=== PATIENT | female | born 1980 | race Caucasian/White ===

== ENCOUNTER 2017-02-21 01:15 | Emergency (ER) | payer MEDICAID ==
[2012-11-25 06:37] VITALS: BMI 29.2
== END 2017-02-21 02:38 | disposition home or self-care (01) ==
LOC: D.ER 01:15
DX: M25.562 Pain in left knee (principal); F17.200 Nicotine dependence, unspecified, uncomplicated; F41.9 Anxiety disorder, unspecified; J45.909 Unspecified asthma, uncomplicated; F31.9 Bipolar disorder, unspecified; M79.7 Fibromyalgia; G25.81 Restless legs syndrome

== ENCOUNTER 2019-05-01 18:19 | Emergency (ER) | payer MEDICAID ==
[~2019-05-01] VITALS: Ht 162.6 cm; Wt 68.2 kg
[2019-05-01 18:53] VITALS: Ht 162.6 cm; Wt 68.2 kg
[2019-05-01] MEDS ORDERED: XOLAIR (18:55)
[2019-05-01] MEDS ORDERED: TRILEPTAL600 MG PO (18:55)
[2019-05-01 19:21] LABS: BASOPHILS 0.6 % (0-2); EOSINOPHILS 3.7 % (0-7); HEMATOCRIT 38.5 % (36.0-48.0); HEMOGLOBIN 13.4 g/dL (12-16); IMMATURE GRANULOCYTES 0.3 % (0-5); LYMPHOCYTES 20.9 % (15-50); MCH 31.6 pg (26.0-34.0); MCHC 34.8 g/dL (31.0-37.0); MCV 90.8 fL (80.0-100.0); MEAN PLATELET VOLUME 10.2 fL (7.4-10.4); MONOCYTES 5.7 % (2-11); NEUTROPHILS 68.8 % (40-80); PLATELET COUNT 354 10x3/uL (130-400); RBC 4.24 10x6/uL (4.00-5.40); RDW 13.3 % (11.5-14.5); WBC 11.4 10x3/uL (4.8-10.8)
[2019-05-01 19:36] LABS: ALBUMIN 3.8 g/dL (3.4-5.0); ALKALINE PHOSPHATASE 53 U/L (46-116); ALT (SGPT) 14 U/L (10-68); BILIRUBIN - TOTAL 0.13 mg/dL (0.2-1.3); CALC OSMOLALITY 275 mosm/kg (275-300); CALCIUM 8.5 mg/dL (8.5-10.1); CARBON DIOXIDE 27.6 mmol/L (21.0-32.0); CHLORIDE - SERUM 102 mmol/L (98-107); CREATININE - SERUM 0.9 mg/dL (0.6-1.3); GLUCOSE 94 mg/dL (74-106); PROTEIN - SERUM 7.1 g/dL (6.4-8.2); SODIUM 138 mmol/L (136-145); UREA NITROGEN 13 mg/dL (7-18); eGFR NON AFRICAN AMERICAN 75 mL/min (90-120)
[2019-05-01 19:39] LABS: AMYLASE - SERUM 63 U/L (25-115); LIPASE 128 U/L (73-393)
[2019-05-01 19:42] LABS: TROPONIN-I < 0.017 ng/mL (0.000-0.060)
[2019-05-01 20:16] LABS: APPEARANCE CLEAR (CLEAR); BILIRUBIN NEGATIVE (NEGATIVE); COLOR YELLOW (YELLOW); GLUCOSE NEGATIVE (NEGATIVE); KETONE NEGATIVE (NEGATIVE); NITRITE NEGATIVE (NEGATIVE); PROTEIN NEGATIVE (NEGATIVE); UROBILINOGEN NORMAL (NORMAL)
[2019-05-01 20:18] LABS: HCG URINE NEGATIVE (NEGATIVE)
[2019-05-01] MEDS ORDERED: TORADOL10 MG PO (22:40)
[2019-05-01 23:10] VITALS: BP 118/70
== END 2019-05-01 23:10 | disposition home or self-care (01) ==
LOC: D.ER 18:19
PROVIDERS: Family Medicine
DX: R10.2 Pelvic and perineal pain (principal)

== ENCOUNTER 2019-10-18 12:29 | Emergency (ER) | payer MEDICAID ==
[~2019-10-18] VITALS: Ht 162.6 cm; Wt 72.3 kg
[~2019-10-18 12:29] MED LIST: TORADOL10 MG PO; TRILEPTAL600 MG PO; XOLAIR
[2019-10-18 12:39] VITALS: Ht 162.6 cm; Wt 72.3 kg
[2019-10-18] MEDS ORDERED: TRAZODONE HCL150 MG PO (12:41)
[2019-10-18] MEDS ORDERED: BUSPIRONE HCL30 MG PO (12:41)
[2019-10-18] MEDS ORDERED: ALBUTEROL SULF8.5 GM INH (12:42)
[2019-10-18 13:03] LABS: BASOPHILS 0.4 % (0-2); EOSINOPHILS 4.4 % (0-7); HEMATOCRIT 39.7 % (36.0-48.0); HEMOGLOBIN 14.2 g/dL (12-16); IMMATURE GRANULOCYTES 0.1 % (0-5); LYMPHOCYTES 36.9 % (15-50); MCH 31.7 pg (26.0-34.0); MCHC 35.8 g/dL (31.0-37.0); MCV 88.6 fL (80.0-100.0); MEAN PLATELET VOLUME 9.2 fL (7.4-10.4); MONOCYTES 6.6 % (2-11); NEUTROPHILS 51.6 % (40-80); PLATELET COUNT 390 10x3/uL (130-400); RBC 4.48 10x6/uL (4.00-5.40); RDW 12.3 % (11.5-14.5); WBC 7.5 10x3/uL (4.8-10.8)
[2019-10-18 13:08] LABS: APPEARANCE CLOUDY (CLEAR); BILIRUBIN NEGATIVE (NEGATIVE); COLOR YELLOW (YELLOW); GLUCOSE NEGATIVE (NEGATIVE); HCG URINE NEGATIVE (NEGATIVE); KETONE NEGATIVE (NEGATIVE); NITRITE POSITIVE (NEGATIVE); PROTEIN NEGATIVE (NEGATIVE); UROBILINOGEN NORMAL (NORMAL)
[2019-10-18 13:14] LABS: BACTERIA MANY /hpf (NEGATIVE); EPITHELIAL CELLS 0-5 /hpf (0-5); MUCUS <1+ /lpf (NONE SEEN); RED CELLS - URINE RARE /hpf (0-5); WHITE CELLS - URINE 0-5 /hpf (NEGATIVE)
[2019-10-18 13:18] LABS: CALC OSMOLALITY 257 mosm/kg (275-300); CALCIUM 8.7 mg/dL (8.5-10.1); CARBON DIOXIDE 24.5 mmol/L (21.0-32.0); CHLORIDE - SERUM 94 mmol/L (98-107); CREATININE - SERUM 0.8 mg/dL (0.6-1.3); GLUCOSE 91 mg/dL (74-106); POTASSIUM - SERUM 4.2 mmol/L (3.5-5.1); SODIUM 130 mmol/L (136-145); UREA NITROGEN 5 mg/dL (7-18); eGFR NON AFRICAN AMERICAN 85 mL/min (90-120)
[2019-10-18 13:26] LABS: ALKALINE PHOSPHATASE 52 U/L (46-116); ALT (SGPT) 18 U/L (10-68); AMYLASE - SERUM 52 U/L (25-115); BILIRUBIN - TOTAL 0.23 mg/dL (0.2-1.3); LIPASE 77 U/L (73-393); PROTEIN - SERUM 7.6 g/dL (6.4-8.2); TROPONIN-I < 0.017 ng/mL (0.000-0.060)
[2019-10-18] MEDS ORDERED: ZOFRAN ODT4 MG/UDTAB PO (16:06)
[2019-10-18] MEDS ORDERED: CARAFATE1 G PO (16:06)
[2019-10-18] MEDS ORDERED: RANITIDINE HCL150 M1 PO (16:06)
[2019-10-18] MEDS ORDERED: ACETAMINOPHEN500 M1 PO (16:06)
[2019-10-18] MEDS ORDERED: CYCLOBENZAPRINE10 MG PO (16:06)
[2019-10-18 16:51] VITALS: BP 122/78
== END 2019-10-18 16:51 | disposition home or self-care (01) ==
LOC: D.ER 12:29
PROVIDERS: Family Medicine
DX: R10.13 Epigastric pain (principal); K21.9 Gastro-esophageal reflux disease without esophagitis; J45.909 Unspecified asthma, uncomplicated; A05.9 Bacterial foodborne intoxication, unspecified; N83.201 Unspecified ovarian cyst, right side; N39.0 Urinary tract infection, site not specified; Z72.0 Tobacco use

== ENCOUNTER 2020-06-11 05:53 | Day surgery (SDC) | payer MEDICAID ==
[~2020-06-11] VITALS: Ht 162.6 cm; Wt 67.7 kg
[~2020-06-11 05:53] MED LIST changes: +ACETAMINOPHEN500 M1 PO; +ALBUTEROL SULF8.5 GM INH; +BUSPIRONE HCL30 MG PO; +CARAFATE1 G PO; +CYCLOBENZAPRINE10 MG PO; +RANITIDINE HCL150 M1 PO; +TRAZODONE HCL150 MG PO; +ZOFRAN ODT4 MG/UDTAB PO
[2020-06-11] MEDS ORDERED: FLOVENT HFA 11012 GM INH (06:30)
[2020-06-11] MEDS ORDERED: ABILIFY2 MG PO (06:30)
[2020-06-11] MEDS ORDERED: GABAPENTIN300 MG PO (06:31)
[2020-06-11] MEDS ORDERED: PEPCID AC20 MG PO (06:31)
[2020-06-11 06:57] VITALS: Ht 162.6 cm; Wt 67.7 kg
[2020-06-11 07:00] LABS: HCG SERUM NEGATIVE (NEGATIVE)
[2020-06-11 07:31] LABS: HEMATOCRIT 38.8 % (36.0-48.0); HEMOGLOBIN 13.2 g/dL (12-16); MCH 31.6 pg (26.0-34.0); MCV 92.8 fL (80.0-100.0); MEAN PLATELET VOLUME 9.3 fL (7.4-10.4); RBC 4.18 10x6/uL (4.00-5.40); RDW 12.5 % (11.5-14.5); WBC 6.8 10x3/uL (4.8-10.8)
--- NOTE | 2020-06-11 13:03 | NUR ---
0955 DRESSED. AWAKE & ALERT. GIVEN DISCHARGE INFORMATION INCLUDING: MED REC, GERD DIET INFORMATION, SHEET LISTING NSAIDS TO AVOID, POST ENDOSCOPY D/C INSTRUCTIONS. PT VOICED UNDERSTANDING. TO PRIVATE CAR PER WHEELCHAIR BY THIS NURSE. HOME WITH MOTHER, JACK YEN. Edgar DAVID R.N.
--- NOTE | 2020-06-12 15:39 | OP ---
PATIENT NAME: WANDA YEN MEDICAL RECORD: [id number] :84 LOCATION:[facility] ADMISSION DATE: SURGEON: ALEKSANDRA RAMSEY DO DATE OF OPERATION: 06/11/2020 PROCEDURE: EGD with biopsies. INDICATIONS FOR PROCEDURE: Dysphagia, heartburn, nausea and vomiting, epigastric pain. SCOPE: Olympus video gastroscope. MEDICATIONS: Propofol 150 mg IV per anesthesia. ESTIMATED BLOOD LOSS: Minimal. COMPLICATIONS: None. FINDINGS: Informed consent was given. The patient was made comfortable with the above medication. After reaching an adequate level of sedation by slow IV push, the patient was placed on her left side. The endoscope was advanced under direct visualization through the mouth to the second portion of the duodenum. The esophagus appeared normal down to the GE junction. Cold forceps biopsies were taken from the midesophagus to rule out the presence of eosinophils. At the GE junction, there were minor changes consistent with LA class A reflux-induced esophagitis. The endoscope was advanced beyond the GE junction into the stomach and retroflexed to view the cardia and fundus, which appeared normal. Throughout the body of the stomach as well as the antrum and prepyloric regions, there was some mild erythema and granularity consistent with mild chronic gastritis. Cold forceps biopsies were taken from the antrum and incisura to submit for histopathology and to rule out the presence of H. pylori. In the stomach body, there were a few benign appearing fundic gland type gastric polyps. A single polyp was biopsied using cold forceps to submit for histopathology. The endoscope was advanced beyond the pylorus into the duodenum, which appeared normal to the second portion. Cold forceps biopsies were taken randomly to submit for histopathology. The endoscope was withdrawn from the patient. The patient tolerated the procedure well and there were no complications. IMPRESSION: 1. LA class A reflux-induced esophagitis. 2. Mild chronic gastritis changes. 3. Few benign-appearing gastric polyps, status post biopsy. PLAN AND RECOMMENDATIONS: 1. Discharge home when recovery parameters are met. 2. Follow up biopsy specimen results. 3. GERD diet and reflux precautions. 4. Hold omeprazole and try to obtain Dexilant 60 mg daily. 5. Okay to continue as needed Pepcid in the evening for breakthrough symptoms. 6. Right upper quadrant ultrasound regarding epigastric pain and nausea and vomiting. 7. Consider PIPIDA scan if ultrasound is normal. 8. Consider gastric emptying scan if all above is normal and the patient continues to experience symptoms. OPERATIVE REPORT [id number] WANDA YEN 9. Follow up in GI clinic in 4-6 weeks. TRANSINT:[id number] Voice Confirmation ID: [id number] DOCUMENT ID: [id number] ALEKSANDRA RAMSEY DO at 1539 CC: [id number] DICTATION DATE: 06/11/20831 FAMILY CONSUMER SCIENCE FCS TEACHER: 06/11/20 1513 [facility] 06/11/20 [facility] [address] [place] [address]
== END 2020-06-11 09:23 | disposition home or self-care (01) ==
LOC: D.OPS 05:53
PROVIDERS: Anesthesiology; ATTEND Internal Medicine Gastroenterology
DX: R13.10 Dysphagia, unspecified (principal); R12 Heartburn; R11.2 Nausea with vomiting, unspecified; J45.909 Unspecified asthma, uncomplicated; Z72.0 Tobacco use; R19.7 Diarrhea, unspecified; R19.4 Change in bowel habit

== ENCOUNTER → 2020-06-25 09:21 | Outpatient (CLI) | payer MEDICAID ==
[2020-06-11 06:57] VITALS: BMI 25.6
[~2020-06-25 09:21] MED LIST changes: +ABILIFY2 MG PO; +FLOVENT HFA 11012 GM INH; +GABAPENTIN300 MG PO; +PEPCID AC20 MG PO
== END | disposition home or self-care (01) ==
LOC: D.NM 09:21
PROVIDERS: ATTEND Internal Medicine Gastroenterology
DX: R11.2 Nausea with vomiting, unspecified (principal); R10.9 Unspecified abdominal pain

== ENCOUNTER 2020-07-09 11:05 | Day surgery (SDC) | payer MEDICAID ==
[~2020-07-09] VITALS: Ht 162.6 cm; Wt 68.2 kg
[2020-07-09 11:39] LABS: BASOPHILS 0.9 % (0-2); EOSINOPHILS 7.6 % (0-7); HEMATOCRIT 38.7 % (36.0-48.0); HEMOGLOBIN 13.4 g/dL (12-16); IMMATURE GRANULOCYTES 0.2 % (0-5); LYMPHOCYTES 48.8 % (15-50); MCH 31.6 pg (26.0-34.0); MCHC 34.6 g/dL (31.0-37.0); MCV 91.3 fL (80.0-100.0); MEAN PLATELET VOLUME 8.9 fL (7.4-10.4); MONOCYTES 6.2 % (2-11); NEUTROPHILS 36.3 % (40-80); PLATELET COUNT 359 10x3/uL (130-400); RBC 4.24 10x6/uL (4.00-5.40); RDW 11.7 % (11.5-14.5)
[2020-07-09] MEDS ORDERED: PROTONIX20 MG PO (12:05)
[2020-07-09 12:21] VITALS: BP 111/74; Ht 162.6 cm; Wt 68.2 kg
--- NOTE | 2020-07-10 14:37 | OP ---
PATIENT NAME: WANDA YEN MEDICAL RECORD: [id number] :84 LOCATION:[facility] ADMISSION DATE: SURGEON: ALEKSANDRA RAMSEY DO DATE OF OPERATION: 07/09/2020 PROCEDURE: Colonoscopy with biopsies. INDICATIONS FOR PROCEDURE: Diarrhea, altered bowel function. SCOPE: Olympus video pediatric colonoscope. MEDICATIONS: Propofol 400 mg IV per anesthesia. WITHDRAWAL TIME: 11 minutes. ESTIMATED BLOOD LOSS: Minimal. COMPLICATIONS: None. FINDINGS: Informed consent was given. The patient was made comfortable with the above medication. After reaching an adequate level of sedation by slow IV push, the patient was placed on her left side. A digital rectal examination was performed and it was normal. The endoscope was then advanced under direct visualization through the rectum to the cecum and terminal ileum. The endoscope was slowly withdrawn. Mucosa was carefully examined. The prep quality was fair. There were no polyps visualized on today's examination. There were a few scattered diverticula throughout the entire colon. Retroflexion was performed in the rectum with visualization of a normal appearing rectal wall. During the procedure, stool was collected to submit for further stool studies and random biopsies were taken to rule out the presence of microscopic colitis. The endoscope was withdrawn from the patient. The patient tolerated the procedure well and there were no complications. IMPRESSION: 1. Mild diverticulosis. 2. Otherwise, normal colonoscopy. PLAN AND RECOMMENDATIONS: 1. Discharge home when recovery parameters are met. 2. Follow up biopsy specimen results. 3. High fiber diet. 4. Continue current medications. 5. Trial of dicyclomine 20 mg t.i.d. p.r.n. loose stools or abdominal pain/cramping. 6. Recall colonoscopy at age 52 for colorectal cancer screening. 7. Follow up in GI clinic in 2 months. TRANSINT:[id number] Voice Confirmation ID: [id number] DOCUMENT ID: [id number] OPERATIVE REPORT [id number] WANDA YEN ALEKSANDRA RAMSEY DO at 1439 CC: [id number] DICTATION DATE: 07/09/20 1435 TICKET CHOPPER ASSEMBLER: 07/09/20 2354 [facility] 07/09/20 [place] [address]
== END 2020-07-09 15:10 | disposition home or self-care (01) ==
LOC: D.OPS 11:05
PROVIDERS: Anesthesiology; ATTEND Internal Medicine Gastroenterology
DX: R19.7 Diarrhea, unspecified (principal); R19.4 Change in bowel habit; K57.30 Diverticulosis of large intestine without perforation or abscess without bleeding; R10.13 Epigastric pain; R11.2 Nausea with vomiting, unspecified; R13.10 Dysphagia, unspecified

== ENCOUNTER 2021-01-18 11:22 | Inpatient (IN) | payer MEDICAID ==
[~2021-01-18] VITALS: Ht 162.6 cm; Wt 64.5 kg
[~2021-01-18 11:22] MED LIST changes: +PROTONIX20 MG PO
--- NOTE | 2021-01-18 11:34 | NUR ---
BLOOD DRAWN AND SENT TO LAB PER PROTOCOL.
--- NOTE | 2021-01-18 11:51 | NUR ---
ATTEMPTED TO CALL LAB TO CHECK LAB STATUS, NO ANSWER.
[2021-01-18 11:56] LABS: BASOPHILS 0.5 % (0-2); EOSINOPHILS 8.8 % (0-7); HEMATOCRIT 38.1 % (36.0-48.0); HEMOGLOBIN 12.8 g/dL (12-16); IMMATURE GRANULOCYTES 0.7 % (0-5); LYMPHOCYTE ABS# 2.31 10x3/uL (1.18-3.74); LYMPHOCYTES 21.1 % (15-50); MCH 31.4 pg (26.0-34.0); MCHC 33.6 g/dL (31.0-37.0); MCV 93.4 fL (80.0-100.0); MEAN PLATELET VOLUME 8.8 fL (7.4-10.4); MONOCYTES 6.4 % (2-11); NEUTROPHIL ABS# 6.83 10x3/uL (1.56-6.13); NEUTROPHILS 62.5 % (40-80); PLATELET COUNT 336 10x3/uL (130-400); RBC 4.08 10x6/uL (4.00-5.40); RDW 12.6 % (11.5-14.5); WBC 10.9 10x3/uL (4.8-10.8)
[2021-01-18 12:07] LABS: CALC OSMOLALITY 266 mosm/kg (275-300); CALCIUM 8.3 mg/dL (8.5-10.1); CARBON DIOXIDE 29.3 mmol/L (21.0-32.0); CHLORIDE - SERUM 100 mmol/L (98-107); CREATININE - SERUM 0.8 mg/dL (0.6-1.3); GLUCOSE 112 mg/dL (74-106); SODIUM 134 mmol/L (136-145); UREA NITROGEN 6 mg/dL (7-18); eGFR NON AFRICAN AMERICAN 85 mL/min (90-120)
[2021-01-18 12:18] LABS: APTT 26.8 SECONDS (22.8-39.4); INR 0.98 (0.85-1.17)
[2021-01-18 12:22] LABS: ALBUMIN 2.9 g/dL (3.4-5.0); ALKALINE PHOSPHATASE 57 U/L (30-120); ALT (SGPT) 29 U/L (10-68); BILIRUBIN - TOTAL 0.12 mg/dL (0.2-1.3); CKMB 0.5 U/L (0.0-3.6); CREATINE KINASE 48 UL (21-215); PRO BNP 347 pg/mL (0-125); PROTEIN - SERUM 6.4 g/dL (6.4-8.2); TROPONIN-I < 0.017 ng/mL (0.000-0.060)
[2021-01-18 17:02] VITALS: BP 109/75
[2021-01-18] MEDS ORDERED: TRILEPTAL600 MG PO (17:19)
[2021-01-18 17:22] VITALS: Ht 162.6 cm; Wt 64.5 kg
[2021-01-18 17:50] LABS: C-REACTIVE PROTEIN 1.7 mg/dL (0.0-0.9)
[2021-01-18 18:43] LABS: ERYTHROCYTE SEDIMENTATION RATE 20 mm/hr (0-20)
[2021-01-18 20:00] VITALS: BP 112/56
--- NOTE | 2021-01-18 22:00 | NUR ---
AWAKE IN ROOM. NO S/S OF DITRESS. CLIR. UP AD YANNICK. DENIES ANY NEEDS OR CONNCERNS. WILL CONT TO MONITOR.
[2021-01-18 22:07] LABS: BILIRUBIN NEGATIVE (NEGATIVE); KETONE NEGATIVE (NEGATIVE); NITRITE POSITIVE (NEGATIVE); UROBILINOGEN NORMAL mg/dL (< 2)
[2021-01-18 22:12] LABS: BACTERIA MANY HPF (NONE SEEN); SQUAMOUS EPITHELIAL 0-5 HPF (0-4)
[2021-01-18 22:15] LABS: UDS - AMPHET NEGATIVE QUAL (NEGATIVE); UDS - BARB NEGATIVE QUAL (NEGATIVE); UDS - BENZO NEGATIVE QUAL (NEGATIVE); UDS - COCAINE NEGATIVE QUAL (NEGATIVE); UDS - OPIATE NEGATIVE QUAL (NEGATIVE); UDS - PCP NEGATIVE QUAL (NEGATIVE); UDS - THC NEGATIVE QUAL (NEGATIVE)
[2021-01-19] VITALS: BP 106/55
--- NOTE | 2021-01-19 02:10 | NUR ---
RESTING QUIETLY IN BED. CLIR. WILL CONT TO MONITOR.
[2021-01-19 05:53] LABS: BASOPHILS 0.1 % (0-2); EOSINOPHILS 0.1 % (0-7); HEMATOCRIT 37.8 % (36.0-48.0); HEMOGLOBIN 12.7 g/dL (12-16); IMMATURE GRANULOCYTES 0.4 % (0-5); LYMPHOCYTE ABS# 1.35 10x3/uL (1.18-3.74); LYMPHOCYTES 8.1 % (15-50); MCH 30.9 pg (26.0-34.0); MCHC 33.6 g/dL (31.0-37.0); MONOCYTES 4.9 % (2-11); NEUTROPHIL ABS# 14.37 10x3/uL (1.56-6.13); NEUTROPHILS 86.4 % (40-80); PLATELET COUNT 375 10x3/uL (130-400); RBC 4.11 10x6/uL (4.00-5.40); RDW 12.5 % (11.5-14.5)
[2021-01-19 06:07] LABS: WBC 16.6 10x3/uL (4.8-10.8)
[2021-01-19 06:15] LABS: ALBUMIN 2.8 g/dL (3.4-5.0); ALKALINE PHOSPHATASE 34 U/L (30-120); BILIRUBIN - TOTAL 0.16 mg/dL (0.2-1.3); CALC OSMOLALITY 263 mosm/kg (275-300); CALCIUM 8.6 mg/dL (8.5-10.1); CARBON DIOXIDE 29.1 mmol/L (21.0-32.0); CHLORIDE - SERUM 98 mmol/L (98-107); CREATININE - SERUM 0.8 mg/dL (0.6-1.3); GLUCOSE 106 mg/dL (74-106); POTASSIUM - SERUM 4.3 mmol/L (3.5-5.1); PROTEIN - SERUM 6.5 g/dL (6.4-8.2); SODIUM 133 mmol/L (136-145); UREA NITROGEN 7 mg/dL (7-18); eGFR NON AFRICAN AMERICAN 85 mL/min (90-120)
[2021-01-19 06:17] LABS: ALT (SGPT) 37 U/L (10-68)
[2021-01-19 07:00] VITALS: BP 101/48
[2021-01-19 07:18] LABS: INR 1.02 (0.85-1.17); PROTIME 12.4 SECONDS (11.6-15.0)
[2021-01-19 15:55] VITALS: BP 104/66
[2021-01-19 20:50] VITALS: BP 131/80
[2021-01-19 21:38] LABS: SARS-CoV-2 ANTIGEN NEGATIVE- SARS-COV-2 (NEGATIVE)
--- NOTE | 2021-01-19 22:00 | NUR ---
MEDS PASSED. NO S/S OF DISTRESS. DENIES ANY NEW NEEDS OR CONCERNS. CLIR. WILL CONT TO MONITOR.
[2021-01-20 01:21] VITALS: BP 122/74
--- NOTE | 2021-01-20 03:00 | NUR ---
RESTING IN BED. CLIR. NO S/S OF DISTRESS. WILL CONT TO MONITOR.
[2021-01-20 05:17] VITALS: BP 124/66
[2021-01-20 06:29] LABS: BASOPHILS 0.1 % (0-2); EOSINOPHILS 0.2 % (0-7); HEMATOCRIT 36.2 % (36.0-48.0); HEMOGLOBIN 12.2 g/dL (12-16); IMMATURE GRANULOCYTES 0.5 % (0-5); LYMPHOCYTES 17.7 % (15-50); MCH 31.2 pg (26.0-34.0); MCHC 33.7 g/dL (31.0-37.0); MCV 92.6 fL (80.0-100.0); MEAN PLATELET VOLUME 8.9 fL (7.4-10.4); MONOCYTES 6.1 % (2-11); NEUTROPHILS 75.4 % (40-80); PLATELET COUNT 312 10x3/uL (130-400); RBC 3.91 10x6/uL (4.00-5.40); RDW 12.8 % (11.5-14.5)
[2021-01-20 06:34] LABS: WBC 11.3 10x3/uL (4.8-10.8)
[2021-01-20 06:54] LABS: ALBUMIN 2.9 g/dL (3.4-5.0); ALKALINE PHOSPHATASE 37 U/L (30-120); ALT (SGPT) 68 U/L (10-68); BILIRUBIN - TOTAL 0.15 mg/dL (0.2-1.3); CALC OSMOLALITY 272 mosm/kg (275-300); CALCIUM 8.4 mg/dL (8.5-10.1); CHLORIDE - SERUM 101 mmol/L (98-107); CREATININE - SERUM 0.7 mg/dL (0.6-1.3); GLUCOSE 93 mg/dL (74-106); MAGNESIUM - SERUM 1.9 mg/dL (1.8-2.4); PHOSPHOROUS 4.2 mg/dL (2.5-4.9); POTASSIUM - SERUM 4.2 mmol/L (3.5-5.1); PROTEIN - SERUM 6.4 g/dL (6.4-8.2); SODIUM 137 mmol/L (136-145); UREA NITROGEN 11 mg/dL (7-18); eGFR NON AFRICAN AMERICAN > 90 mL/min (90-120)
[2021-01-20 07:00] VITALS: BP 107/69
--- NOTE | 2021-01-20 07:20 | NUR ---
RECIEVE REPORT. ALERT AND ORIENTED X4. COVID PENDING. DENIES ANY NEEDS. CONTINUE PLAN OF CARE AND SAFETY PRECAUTIONS.
--- NOTE | 2021-01-20 16:32 | NUR ---
ALERT AND ORIENTED X4. SITTING UP IN BED. CELL PHONE BROUGHT TO ROOM FROM ER. COVID SWAB COLLECTED AND TAKEN TO LAB. DENIES ANY NEEDS. DENIES SOB. CONTINUE PLAN OF CARE AND SAFETY PRECAUTIONS.
[2021-01-20 17:13] VITALS: BP 116/56
--- NOTE | 2021-01-20 21:00 | NUR ---
RECEIVED PATIENT SITTING UP IN BED. ASSESSMENT COMPLETE. NO S/S OF DITESS. AAOX4. DENIES PAIN OR SOB. CLIR. BED IN LOWEST POSITION. WILL CONT TO MONITOR.
--- NOTE | 2021-01-21 02:56 | NUR ---
PATIENT SLEEPING RESTFULLY. CLIR. WILL CONT TO MONITOR.
[2021-01-21 03:30] VITALS: BP 108/55
[2021-01-21 06:49] LABS: BASOPHILS 0.4 % (0-2); EOSINOPHILS 2.5 % (0-7); HEMATOCRIT 38.1 % (36.0-48.0); HEMOGLOBIN 12.6 g/dL (12-16); IMMATURE GRANULOCYTES 0.6 % (0-5); LYMPHOCYTE ABS# 2.88 10x3/uL (1.18-3.74); LYMPHOCYTES 41.7 % (15-50); MCH 30.8 pg (26.0-34.0); MCHC 33.1 g/dL (31.0-37.0); MCV 93.2 fL (80.0-100.0); MONOCYTES 8.7 % (2-11); NEUTROPHIL ABS# 3.19 10x3/uL (1.56-6.13); NEUTROPHILS 46.1 % (40-80); PLATELET COUNT 323 10x3/uL (130-400); RBC 4.09 10x6/uL (4.00-5.40); RDW 12.8 % (11.5-14.5)
[2021-01-21 06:53] LABS: WBC 6.9 10x3/uL (4.8-10.8)
[2021-01-21 06:59] LABS: ALBUMIN 3.1 g/dL (3.4-5.0); ALKALINE PHOSPHATASE 39 U/L (30-120); ALT (SGPT) 60 U/L (10-68); BILIRUBIN - TOTAL 0.13 mg/dL (0.2-1.3); CARBON DIOXIDE 31.9 mmol/L (21.0-32.0); CHLORIDE - SERUM 102 mmol/L (98-107); CREATININE - SERUM 0.8 mg/dL (0.6-1.3); GLUCOSE 93 mg/dL (74-106); MAGNESIUM - SERUM 2.2 mg/dL (1.8-2.4); POTASSIUM - SERUM 4.3 mmol/L (3.5-5.1); PROTEIN - SERUM 6.7 g/dL (6.4-8.2); SODIUM 138 mmol/L (136-145); eGFR NON AFRICAN AMERICAN 85 mL/min (90-120)
--- NOTE | 2021-01-21 07:00 | NUR ---
PDATIENT IS SITTING UP IN BED, TALKING ON THE PHONE. PATIENT IS EAGER TO GO HOME. PLAN OF CARE REVIEWED AND ASSESSMENT HAS BEEN COMPLETED. NAD NOTED. CALL LIGHT IN REACH
[2021-01-21 07:02] LABS: CALC OSMOLALITY 276 mosm/kg (275-300); PHOSPHOROUS 5.3 mg/dL (2.5-4.9); UREA NITROGEN 15 mg/dL (7-18)
[2021-01-21 08:20] VITALS: BP 107/60
[2021-01-21] MEDS ORDERED: TRILEPTAL300 MG PO (11:25)
[2021-01-21] MEDS ORDERED: OMNICEF300 MG PO (11:27)
[2021-01-21] MEDS ORDERED: STROMECTOL 3 MG3 MG PO (11:27)
[2021-01-21] MEDS ORDERED: ADOXA100 MG PO (11:28)
[2021-01-21] MEDS ORDERED: PREDNISONE10 MG PO (11:28)
--- NOTE | 2021-01-21 12:39 | NUR ---
OT NOTE: PT DCING HOME TODAY.. INDEP WITH CARE AND MOBILITY. THANK YOU FOR REFERAL WES CRAWFORD OTR/L
--- NOTE | 2021-01-21 13:00 | NUR ---
DC INSTRUCTIONS GIVEN AT THIS TIME. PATEINT DENIES QUESTIONS OR NEEDS. NURSE REMINDS PATIENT OF HER FOLLOW UP APPOINTMENTS AND DC MEDS CHANGES. PATIENT IS READY TO BE WHEELED DOWNSTAIRS. NURSE WHEELS PATIENT DOWN TO PATIENT'S PERSONAL VEHICLE. NAD NOTED.
[2021-01-23 13:13] LABS: PROCALCITONIN 0.03 ng/mL (0.00-0.08)
--- NOTE | 2021-01-23 21:46 | MORECARE ---
CASE MANAGEMENT DISCHARGE SUMMARY PATIENT: WANDA YEN UNIT: [id number] ADM DATE: 01/18/21 AGE: 40 : 84 SEX: F ROOM/BED: D.6796 AUTHOR: ALYSON,DOC PHYSICIAN: REFERRING PHYSICIAN: ELAINA LEE MD DATE OF SERVICE: 01/23/21 Discharge Plan Patient Name: WANDA YEN Facility: [facility]:[place] : 1980 Planned Disposition: Home Anticipated Discharge Date: Discharge Date: 01/21/2021 Expected LOS: Initial Reviewer: [email or web address] Initial Review Date: 01/18/2021 Generated: 01/23/21 10:45 pm Comments DCP- Discharge Planning Updated by [email or web address]: Nieves Lazar on 01/23/21 8:[address] Late Entry 01/21/21 Patient Name: WANDA YEN Admission Status: ER Accout number: [id number] Admission Date: 01-18-2021 : 1980 Admission Diagnosis:PNEUMONIA, UNSPECIFIED ORGANISM Attending: ELAINA LEE Current LOS: 3 Anticipated DC Date: Planned Disposition: Home Primary Insurance: [facility] Discharge Planning Comments: CM spoke with patient to complete initial dc planning assessment. CM educated patient on the CM role and verbal consent given by patient to complete assessment. Patient lives at home with family. Patient is independent. At discharge patient plans to return home and feels this is a safe discharge. CM discussed availability of home health, rehab services, and medical equipment. Patient will have family to transport home. Patient denied known discharge needs at this time. CM will continue to follow and will assist as needed with dc plans/needs. Director Global Sales: Nieves Lazar DCPIA - Discharge Planning Initial Assessment Updated by [email or web address]: Nieves Lazar on 01/23/21 9:43 pm * Is the patient Alert and Oriented? Yes * How many steps to enter\exit or inside your home? 3-4 * PCP Berta * Pharm[place] * Preadmission Environment Home with Family * ADLs Independent * Equipment Nebulizer * Other Equipment home / portable 02 * List name and contact numbers for known caregivers / representatives who currently or will assist patient after discharge: Tita Yen -Mother- [phone] * Verbal permission to speak to the caregivers and representatives has been obtained from the patient. Yes * Community resources currently utilized None * Additional services required to return to the preadmission environment? No * Can the patient safely return to the preadmission environment? Yes * Has this patient been hospitalized within the prior 30 days at any hospital? No Patient Name: WANDA YEN Page [id number] at 2146 All edits/amendments must be made on the electronic document DICTATION DATE: 01/23/212144 DIRECTOR OF CATERING SALES: ZARA 01/23/212144 RPT#: [id number] DC DATE:01/21/21 STATUS: DIS IN [facility] [address] [place] [address] END OF REPORT
[2021-01-24 12:11] LABS: IGG SUBCLASS 1 352 mg/dL (248-810); IGG SUBCLASS 2 294 mg/dL (130-555); IGG SUBCLASS 3 44 mg/dL (15-102); IGG SUBCLASS 4 18 mg/dL (2-96); IGGS - IGG SERUM 763 mg/dL (586-1602)
== END 2021-01-21 13:14 | disposition home or self-care (01) | DRG 177 ==
LOC: D.ER 11:22 → D.M2 14:41 → D.EDHOLD 14:41 → D.M2 15:55
PROVIDERS: Family Medicine; Internal Medicine Pulmonary Disease; ADMIT Emergency Medicine; ATTEND Emergency Medicine
DX: U07.1 COVID-19 (principal); J12.82 Pneumonia due to coronavirus disease 2019; J96.01 Acute respiratory failure with hypoxia; E87.1 Hypo-osmolality and hyponatremia; Z20.822 Contact with and (suspected) exposure to COVID-19; J30.9 Allergic rhinitis, unspecified; K31.84 Gastroparesis; K21.9 Gastro-esophageal reflux disease without esophagitis; G43.909 Migraine, unspecified, not intractable, without status migrainosus; F12.90 Cannabis use, unspecified, uncomplicated; M79.7 Fibromyalgia; M19.90 Unspecified osteoarthritis, unspecified site; Z72.0 Tobacco use

== ENCOUNTER 2021-05-15 17:18 | Emergency (ER) | payer MEDICAID ==
[~2021-05-15] VITALS: Ht 162.6 cm; Wt 67.3 kg
[~2021-05-15 17:18] MED LIST changes: +ADOXA100 MG PO; +OMNICEF300 MG PO; +PREDNISONE10 MG PO; +STROMECTOL 3 MG3 MG PO; +TRILEPTAL300 MG PO
[2021-05-15 17:59] VITALS: BP 130/89; Ht 162.6 cm; Wt 67.3 kg
[2021-05-15] MEDS ORDERED: TORADOL10 MG PO (18:31)
== END 2021-05-15 18:52 | disposition home or self-care (01) ==
LOC: D.ER 17:18
DX: S70.11XA Contusion of right thigh, initial encounter (principal); J45.909 Unspecified asthma, uncomplicated; K21.9 Gastro-esophageal reflux disease without esophagitis; Z72.0 Tobacco use; W22.8XXA Striking against or struck by other objects, initial encounter; Y93.9 Activity, unspecified; Y92.9 Unspecified place or not applicable